=== PATIENT | female | born 1980 | race African-American/Black ===

== ENCOUNTER 2016-10-09 11:08 | Emergency (ER) | payer SELFPAY ==
[~2016-10-09] VITALS: Ht 180.3 cm; Wt 96.6 kg
[~2016-10-09 11:08] MED LIST: CALC300T4 PO; DICY20TA30 PO; NAPR500T3 PO; ONDA4TAB7 PO; PROM25TA10 PO
[2016-10-09 11:30] VITALS: BP 138/81
--- NOTE | 2016-10-09 12:02 | RAD ---
Knee x-rays Indication: anterior and lateral right knee pain. Technique: 3 views of right knee Comparison: none Findings: No acute fracture or dislocation. No evidence of arthritic process. No knee joint effusion. Impression: No acute fracture or dislocation.
--- NOTE | 2016-10-09 12:12 | PHYS DOC ---
Past Medical History Past Medical History: Other Additional Past Medical Histor: ectopic , dislocated R knee 6 yrs ago Past Surgical History: Tubal ligation, Other Additional Past Surgical Histo: D&C for ectopic 2004 Alcohol Use: Occasionally Drug Use: None Adult General Chief Complaint Chief Complaint: KNEE INJURY [facility] HPI Patient is a 36 year old female presents to the emergency department with a history of right knee pain. Patient states she walking along when the knee gave out. Her pain in above the knee and runs down the lateral side of the knee. She denies numbness or tingling to the lower extremities. She had taken ibuprofen for the pain with minimal relief. She is able to ambulate with steady gait. Review of Systems Review of Systems Constitutional: Denies fever or chills [] Eyes: Denies change in visual acuity, redness, or eye pain [] HENT: Denies nasal congestion or sore throat [] Respiratory: Denies cough or shortness of breath [] Cardiovascular: No additional information not addressed in HPI [] GI: Denies abdominal pain, nausea, vomiting, bloody stools or diarrhea [] : Denies dysuria or hematuria [] Musculoskeletal: Denies back pain. Right knee pain Integument: Denies rash or skin lesions [] Neurologic: Denies headache, focal weakness or sensory changes [] Endocrine: Denies polyuria or polydipsia [] Allergies Allergies Allergies Coded Allergies Type Severity Reaction Last Updated Verified No Known Drug Allergies 03/29/13 No Physical Exam Physical Exam Constitutional: Well developed, well nourished, no acute distress, non-toxic appearance. [] HENT: Normocephalic, atraumatic, bilateral external ears normal, oropharynx moist, no oral exudates, nose normal. [] Eyes: PERRLA, EOMI, conjunctiva normal, no discharge. [] Neck: Normal range of motion, no tenderness, supple, no stridor. [] Cardiovascular:Heart rate regular rhythm Lungs & Thorax: no respiratory distress noted Skin: Warm, dry, no erythema, no rash. [] Back: No tenderness Extremities: right lateral knee tenderness, tenderness noted above the knee, no cyanosis, no clubbing, ROM intact, no edema. No bruising, discoloration or swelling noted. Peripheral pulses 2+ cap refill brisk < 2 seconds. Negative lachmans, negative vargus, negative valgus Neurologic: Alert and oriented X 3, normal motor function, normal sensory function, no focal deficits noted. [] Psychologic: Affect normal, judgement normal, mood normal. [] Current Patient Data Vital Signs Vital Signs Date Time Temp Pulse Resp B/P (MAP) Pulse Ox O2 Delivery O2 Flow Rate FiO2 10/09/16 11:30 98.3 88 18 99 Room Air 98.3 EKG EKG [] Radiology/Procedures Radiology/Procedures [facility] [address] [place] [address] IMAGING REPORT Signed PATIENT: DAI ABERNATHY ACCOUNT: [id number] : 1980 LOCATION: ER AGE: 36 SEX: F EXAM STATUS: REG ER ORD. PHYSICIAN: KATELYNN ISAAC APRN REASON: pain and discomfort PROCEDURE: KNEE RIGHT 4V Knee x-rays Indication: anterior and lateral right knee pain. Technique: 3 views of right knee Comparison: none Findings: No acute fracture or dislocation. No evidence of arthritic process. No knee joint effusion. Impression: No acute fracture or dislocation. DICTATED and SIGNED BY: LOGAN SMITH DO DATE: 10/09/16 1158 CC: KATELYNN ISAAC APRN; NO PCP; NON,STAFF ~ [] Course & Med Decision Making Course & Med Decision Making Pertinent Labs and Imaging studies reviewed. (See chart for details) X-rays were negative for any abnormalities. Patient will be placed in a Shad wrap with recommendations for ice packs on 20 minutes off 20 minutes several times a day. Elevation as much as possible. Patient will be discharged home with recommendations to follow-up with orthopedic. Ibuprofen 800 mg every 8 hours with food stop taking few develop an upset stomach. Patient agrees with discharge instructions treatment regimens and follow-up recommendations. Signs and symptoms to return back to emergency department as been provided. All questions and concerns been answered at patient's bedside. [] Dragon Disclaimer Dragon Disclaimer This electronic medical record was generated, in whole or in part, using a voice recognition dictation system. Departure Departure Impression: Primary Impression: Right knee pain Disposition: HOME, SELF-CARE Condition: STABLE Referrals: NO PCP (PCP) DAR MUSTAFA MD Patient Instructions: Knee Pain, [id number] Additional Instructions: Activity as tolerated. Ice packs on 20 minutes off 20 minutes several times a day. Elevation as much as possible. Wear the Shad wrap for the next 5-7 days. Ibuprofen 800 mg every 8 hours with food stop taking few develop an upset stomach. Follow-up with orthopedic in the next week. Return back to emergency prior signs symptoms of become worse. Problem Qualifiers Primary Impression: Right knee pain Chronicity: unspecified Qualified Codes: M25.561 - Pain in right knee KATELYNN ISAAC APRN Oct 09, 2016 12:12
== END 2016-10-09 12:28 | disposition home or self-care (01) ==
LOC: ER 11:08
DX: M25.561 Pain in right knee (principal)
CPT/HCPCS: 73564; 99284

== ENCOUNTER 2016-10-17 15:40 | Emergency (ER) | payer SELFPAY ==
[~2016-10-17] VITALS: Ht 180.3 cm; Wt 96.2 kg
--- NOTE | 2016-10-17 16:41 | PHYS DOC ---
Past Medical History Past Medical History: Other Additional Past Medical Histor: ectopic , dislocated R knee 6 yrs ago Past Surgical History: Tubal ligation, Other Additional Past Surgical Histo: D&C for ectopic 2004 Alcohol Use: Occasionally Drug Use: None Adult General Chief Complaint Chief Complaint: ABDOMINAL PAIN HPI HPI Patient is a 36 year old AA female presents with suprapubic pain, described as sharp cramping and continuous starting several hours prior to ED arrival. Pain is rated [id number] is worse with palpation and is not relieved with rest or movement. Ibuprofen taken with limited improvement. Patient denies urinary frequency urgency hematuria, vaginal discharge. No flank pain. No nausea vomiting or sweats. No fevers or chills. No history of kidney stones. Previous laparoscopic surgery for ectopic . Last menstrual period was one week ago. No other acute symptoms or complaints Review of Systems Review of Systems Review symptoms as per history of present illness. All other review symptoms are negative. Current Medications Current Medications Current Medications Medications (Trade) Dose Ordered Sig/Jozef Start Time Stop Time Status Last Admin Dose Admin Info (Do NOT chart on this entry -- for MONITORING) 1 each PRN DAILY PRN 10/17/16 20:00 10/17/16 23:03 DC Iohexol (Omnipaque 300 Mg/ml) 75 ml 1X ONCE 10/17/16 19:45 10/17/16 19:46 DC 10/17/16 20:43 75 ML Ketorolac Tromethamine (Toradol) 30 mg 1X ONCE 10/17/16 17:15 10/17/16 17:16 DC 10/17/16 17:30 30 MG Morphine Sulfate 4 mg 1X ONCE 10/17/16 20:45 10/17/16 20:46 DC 10/17/16 21:07 4 MG Ondansetron HCl (Zofran) 4 mg 1X ONCE 10/17/16 19:30 10/17/16 19:31 DC 10/17/16 19:46 4 MG Allergies Allergies Allergies Coded Allergies Type Severity Reaction Last Updated Verified No Known Drug Allergies 03/29/13 No Physical Exam Physical Exam Constitutional: Well developed, well nourished, no acute distress. [] HENT: Normocephalic, atraumatic, bilateral external ears normal, oropharynx moist, nose normal. [] Eyes: PERRLA, EOMI, conjunctiva normal, no discharge. [] Neck: Normal range of motion, no tenderness, supple, no stridor. [] Cardiovascular:Heart rate regular rhythm, no murmur [] Lungs & Thorax: Bilateral breath sounds clear to auscultation [] Abdomen: Bowel sounds normal, soft suprapubic pain, tenderness, right lower quadrant negative McBurney's point. [] Skin: Warm, dry, no erythema, no rash. [] Back: No tenderness, no CVA tenderness. [] Extremities: No tenderness, no cyanosis, no clubbing, ROM intact, no edema. [] Neurologic: Alert and oriented X 3, normal motor function, normal sensory function, no focal deficits noted. [] Psychologic: Affect normal, judgement normal, mood normal. [] Current Patient Data Vital Signs Vital Signs Date Time Temp Pulse Resp B/P (MAP) Pulse Ox O2 Delivery O2 Flow Rate FiO2 10/17/16 21:11 61 16 111/71 (84) 98 Room Air 10/17/16 19:50 98.5 98.5 Lab Values Laboratory Tests Test 10/17/16 15:30 10/17/16 16:06 10/17/16 17:20 POC Urine HCG, Qualitative Hcg negative (Negative) Urine Collection Type Unknown Urine Color Yellow Urine Clarity Clear Urine pH 7.0 Urine Specific [place] 1.010 Urine Protein Negative mg/dL (NEG-TRACE) Urine Glucose (UA) Negative mg/dL (NEG) Urine Ketones (Stick) Negative mg/dL (NEG) Urine Blood Negative (NEG) Urine Nitrite Negative (NEG) Urine Bilirubin Negative (NEG) Urine Urobilinogen Dipstick 0.2 mg/dL (0.2 mg/dL) Urine Leukocyte Esterase Trace (NEG) Urine RBC 0 /HPF (0-2) Urine WBC 1-4 /HPF (0-4) Urine Squamous Epithelial Cells Mod /LPF Urine Bacteria Few /HPF (0-FEW) White Blood Count 12.8 x10^3/uL (4.0-11.0) H Red Blood Count 4.78 x10^6/uL (3.50-5.40) Hemoglobin 13.3 g/dL (12.0-15.5) Hematocrit 40.6 % (36.0-47.0) Mean Corpuscular Volume 85 fL (79-100) Mean Corpuscular Hemoglobin 28 pg (25-35) Mean Corpuscular Hemoglobin Concent 33 g/dL (31-37) Red Cell Distribution Width 12.6 % (11.5-14.5) Platelet Count 220 x10^3/uL (140-400) Neutrophils (%) (Auto) 71 % (31-73) Lymphocytes (%) (Auto) 21 % (24-48) L Monocytes (%) (Auto) 6 % (0-9) Eosinophils (%) (Auto) 1 % (0-3) Basophils (%) (Auto) 1 % (0-3) Neutrophils # (Auto) 9.2 x10^3uL (1.8-7.7) H Lymphocytes # (Auto) 2.7 x10^3/uL (1.0-4.8) Monocytes # (Auto) 0.8 x10^3/uL (0.0-1.1) Eosinophils # (Auto) 0.1 x10^3/uL (0.0-0.7) Basophils # (Auto) 0.1 x10^3/uL (0.0-0.2) Sodium Level 140 mmol/L (136-145) Potassium Level 3.8 mmol/L (3.5-5.1) Chloride Level 103 mmol/L (98-107) Carbon Dioxide Level 27 mmol/L (21-32) Anion Gap 10 (6-14) Blood Urea Nitrogen 9 mg/dL (7-20) Creatinine 0.9 mg/dL (0.6-1.0) Estimated GFR (Cockcroft-Gault) 86.7 BUN/Creatinine Ratio 10 (6-20) Glucose Level 95 mg/dL (70-99) Calcium Level 8.6 mg/dL (8.5-10.1) Total Bilirubin 0.3 mg/dL (0.2-1.0) Aspartate Amino Transferase (AST) 20 U/L (15-37) Alanine Aminotransferase (ALT) 37 U/L (14-59) Alkaline Phosphatase 54 U/L (46-116) C-Reactive Protein, Quantitative 2.3 mg/L (0-3.3) Total Protein 7.2 g/dL (6.4-8.2) Albumin 3.6 g/dL (3.4-5.0) Albumin/Globulin Ratio 1.0 (1.0-1.7) Laboratory Tests 10/17/16 17:20 Laboratory Tests 10/17/16 17:20 EKG EKG .] Radiology/Procedures Radiology/Procedures [CT abdomen and pelvis: Left ovarian mass, right adnexal mass concerning for hydrosalpinx per radiology report Pelvic ultrasound: Blood flow noted to both ovaries, complex left ovarian mass per radiology report.] Course & Med Decision Making Course & Med Decision Making Pertinent Labs and Imaging studies reviewed. (See chart for details) [Pain significantly improved with treatment. I discussed with patient abnormal findings of ultrasound and the importance of following up with INTELLIGENCE MANAGER. Patient referred to on-call INTELLIGENCE MANAGER. Patient verbalizes understanding agreement discharge plan. Dragon Disclaimer Dragon Disclaimer This electronic medical record was generated, in whole or in part, using a voice recognition dictation system. Departure Departure Impression: Primary Impression: Pelvic pain Disposition: 01 HOME, SELF-CARE Condition: IMPROVED Referrals: NO PCP (PCP) OCTAVIA BALDERAS DO Oct 17, 2016 16:41
[2016-10-17 16:59] LABS: BILIRUBIN,URINE NEGATIVE (NEG); GLUCOSE,URINE NEGATIVE (NEG); NITRITE,URINE NEGATIVE (NEG); PROTEIN,URINE NEGATIVE (NEG-TRACE); UROBILINOGEN,URINE 0.2 mg/dL (0.2 mg/dL)
[2016-10-17] MEDS ORDERED: KETOROLAC TROMETHAMINE 30 MG/ML INJ. IV ONE (17:15)
[2016-10-17 17:43] LABS: BACTERIA,URINE FEW /HPF (0-FEW); RBC,URINE 0 /HPF (0-2)
[2016-10-17 17:44] LABS: SQUAMOUS EPITHELIAL CELL,UR MOD /LPF
[2016-10-17 18:29] LABS: BASO # 0.1 x10^3/uL (0.0-0.2); BASO % 1 % (0-3); EOS % 1 % (0-3); HEMATOCRIT 40.6 % (36.0-47.0); HEMOGLOBIN 13.3 g/dL (12.0-15.5); LYMPH # 2.7 x10^3/uL (1.0-4.8); LYMPH % 21 % (24-48); MEAN CORPUSCULAR HEMOGLOBIN 28 pg (25-35); MEAN CORPUSCULAR HGB CONC 33 g/dL (31-37); MEAN CORPUSCULAR VOLUME 85 fL (79-100); MONO % 6 % (0-9); NEUT % 71 % (31-73); PLATELET COUNT 220 x10^3/uL (140-400); RED BLOOD COUNT 4.78 x10^6/uL (3.50-5.40); RED CELL DISTRIBUTION WIDTH 12.6 % (11.5-14.5); WHITE BLOOD COUNT 12.8 x10^3/uL (4.0-11.0)
[2016-10-17 18:43] LABS: CALCIUM 8.6 mg/dL (8.5-10.1); CREATININE 0.9 mg/dL (0.6-1.0); GFR 86.7; POTASSIUM 3.8 mmol/L (3.5-5.1)
[2016-10-17 18:49] LABS: ALBUMIN 3.6 g/dL (3.4-5.0); C-REACTIVE PROTEIN 2.3 mg/L (0-3.3); TOTAL BILIRUBIN 0.3 mg/dL (0.2-1.0); TOTAL PROTEIN 7.2 g/dL (6.4-8.2)
[2016-10-17] MEDS ORDERED: ONDANSETRON PF 4 MG/2 ML VIAL. IV ONE (19:30)
[2016-10-17] MEDS ORDERED: MORPHINE SULFATE 10 MG/ML VIAL. IV ONE (19:30)
[2016-10-17] MEDS ORDERED: IOHEXOL 300 MG/ML 75 ML VIAL IV ONE (19:45)
[2016-10-17] MEDS ORDERED: CONTRAST GIVEN MC PRN (20:00)
[2016-10-17] MEDS ORDERED: MORPHINE SULFATE 4 MG/ML DISP.SYRIN. IV ONE (20:45)
--- NOTE | 2016-10-17 21:07 | RAD ---
EXAM: Abdomen and pelvis CT with intravenous contrast. HISTORY: Pain with urination. TECHNIQUE: Computed tomographic images of the abdomen and pelvis were obtained following the administration of 75 cc Omnipaque 300 intravenous contrast. Multiplanar reformatting was performed. *One or more of the following individualized dose reduction techniques were utilized for this examination: 1. Automated exposure control. 2. Adjustment of the mA and/or kV according to patient size. 3. Use of iterative reconstruction technique. COMPARISON: 06/11/2010. FINDINGS: Evaluation of the lower thorax demonstrates posterior dependent atelectasis. No suspicious hepatic lesion is seen. The gallbladder, pancreas, spleen, adrenal glands and kidneys are unremarkable. The bladder is unremarkable. The appendix is normal in appearance. No abnormally thickened or dilated loop of bowel is seen. The uterus is slightly retroflexed. There is an enlarged heterogeneous left ovary. There is a 7.0 cm somewhat tubular fluid collection within the posterior cul-de-sac. No pathologically enlarged lymph node is seen. There is no suspicious osseous lesion. IMPRESSION: 1. Heterogeneously enlarged left ovary. This may be due to multiple prominent ovarian follicles or solid ovarian lesion. The possibility of enlargement due to torsion is not excluded. This can be further characterized with a pelvic sonogram. 2. 4.7 cm somewhat tubular fluid collection within the posterior cul-de-sac. This may be due to hydrosalpinx or a complex paraovarian cyst. This appears separate from adjacent bowel loops. This can be further assessed with a pelvic sonogram. Electronically signed by: Sis Celestin MD (10/17/2016 9:04 PM) [facility]
[2016-10-17 21:11] VITALS: BP 111/71
--- NOTE | 2016-10-17 22:25 | RAD ---
EXAM: Pelvic sonogram. HISTORY: Left lower quadrant pain. TECHNIQUE: Transabdominal and transvaginal sonographic imaging of the pelvis was performed. COMPARISON: CT obtained on the same date. FINDINGS: The uterus measures 9.1 x 5.4 x 5.7 cm. The endometrial stripe measures 1.4 cm in thickness. The right ovary measures 2.8 x 2.0 x 1.7 cm and demonstrates normal blood flow. There are several small right ovarian follicles. The left ovary is enlarged due to a 3.5 x 3.3 x 2.5 cm nonvascular lesion, possibly an endometrioma. There are multiple surrounding left ovarian follicles and there is normal blood flow within the left ovary with a total left ovarian volume of 7.2 x 4.0 x 3.5 cm. There is a complex cystic or fluid-filled tubular structure posterior to the uterine fundus measuring 7.4 x 3.0 x 2.1 cm. There is no pelvic free fluid. IMPRESSION: 1. 7.4 cm complex cystic or fluid-filled to be a structure posterior to the uterine fundus. This is demonstrated on a sonogram dated 06/11/2010. The minimal interval change management specialist a greater than 6 year period favors a benign etiology such as hydrosalpinx or a paraovarian cyst. 2. 3.5 cm nonvascular lesion within the left ovary, the appearance of which favors an endometrioma. The possibility of an alternative lesion such as a dermoid is not completely excluded. This is not seen on the prior study. 3. Thickened endometrium. Electronically signed by: Sis Celestin MD (10/17/2016 10:22 PM) [facility]
== END 2016-10-17 22:55 | disposition home or self-care (01) ==
LOC: ER 15:40
DX: R10.2 Pelvic and perineal pain (principal); R10.31 Right lower quadrant pain
CPT/HCPCS: 36415; 74177; 76830; 76856; 80053; 81001; 81025; 85025; 86140; 87086; 96374; 96375; 96376; 99285; J1885; J2270; J2405; Q9967

== ENCOUNTER 2017-03-05 10:22 | Emergency (ER) | payer OTHER | END 2017-03-05 11:17 | disposition home or self-care (01) | LOC: ER 10:22 | DX: K04.7 Periapical abscess without sinus (principal) | CPT/HCPCS: 99283 ==

== ENCOUNTER 2017-03-05 19:11 | Emergency (ER) | payer OTHER ==
[2017-03-05] MEDS: LIDOCAINE 2% VISCOUS 15 ML SOLUTION. SWSW (21:13)
[2017-03-05] MEDS: HYDROcodone/APAP 5/325MG 1 TAB TABLET PO (21:14)
== END 2017-03-05 21:30 | disposition home or self-care (01) ==
LOC: ER 19:11
DX: K04.7 Periapical abscess without sinus (principal)
CPT/HCPCS: 99283

== ENCOUNTER 2017-04-05 18:20 | Emergency (ER) | payer OTHER | END 2017-04-05 19:52 | disposition home or self-care (01) | LOC: ER 19:52 | DX: K08.89 Other specified disorders of teeth and supporting structures (principal) | CPT/HCPCS: 99283 ==

== ENCOUNTER 2017-04-06 23:23 | Emergency (ER) | payer OTHER ==
[2017-04-07] MEDS: KETOROLAC 60 MG/2 ML INJ. IM ×2 (00:13)
[2017-04-07] MEDS ORDERED: CONTRAST GIVEN MC ×2 (00:45)
[2017-04-07] MEDS: IOHEXOL 300 MG/ML 100ML VIAL. IV ×2 (01:03)
[2017-04-07] MEDS ORDERED: DOXYCYCLINE HYCLATE 100 MG TABLET PO ×2 (03:00)
== END 2017-04-07 03:05 | disposition home or self-care (01) ==
LOC: ER 23:23
DX: L03.211 Cellulitis of face (principal); J32.9 Chronic sinusitis, unspecified; K08.89 Other specified disorders of teeth and supporting structures; K02.9 Dental caries, unspecified; R22.0 Localized swelling, mass and lump, head
CPT/HCPCS: 70487; 96372; 99284-25; J1885; Q9967

== ENCOUNTER 2021-05-08 16:35 | Emergency (ER) | payer SELFPAY ==
[~2021-05-08] VITALS: Ht 180.3 cm; Wt 100.4 kg
[~2021-05-08 16:35] MED LIST changes: +CLIN-94 PO; +DOXY-181 PO; +HYDR-3164 PO; +LACT1CAP19 PO; +NAPR-514 PO; +NAPR-683 PO; -NAPR500T3 PO; +OXYC1TAB15 PO; +PENI500T PO
[2021-05-08 17:18] VITALS: BP 152/89
[2021-05-09] MEDS ORDERED: HYDR-2761 PO (18:11)
== END 2021-05-08 18:45 | disposition left against medical advice (07) ==
LOC: ER 16:35
DX: M25.551 Pain in right hip (principal); M54.9 Dorsalgia, unspecified; Z53.21 Procedure and treatment not carried out due to patient leaving prior to being seen by health care provider; G89.11 Acute pain due to trauma; W18.39XA Other fall on same level, initial encounter; Y93.89 Activity, other specified; Y92.89 Other specified places as the place of occurrence of the external cause; Y99.8 Other external cause status

== ENCOUNTER 2021-05-09 15:15 | Emergency (ER) | payer SELFPAY ==
[~2021-05-09] VITALS: Ht 175.3 cm; Wt 98.8 kg
[2021-05-09 15:30] VITALS: BP 170/97
--- NOTE | 2021-05-09 15:49 | PHYS DOC ---
Past Medical History Past Medical History: No Pertinent History Additional Past Medical Histor: ectopic , dislocated R knee 6 yrs ago Past Surgical History: Other Additional Past Surgical Histo: D&C for ectopic 2004,laproscopy. Smoking Status: Current Every Day Smoker Alcohol Use: Occasionally Drug Use: None General Adult EDM: Chief Complaint: MECHANICAL FALL HPI: HPI: Patient is a 41-year-old female who presents to the emergency department following a fall that occurred on Thursday. Patient reports that she was taking her trash out when it was raining and she slipped on the wet wooden stairs and slid down on her butt down 5 steps. She denies hitting her head or loss of consciousness. She is reporting pain to her coccyx and right buttock. She rate s her pain 6 out of 10 at rest and 9 out of 10 with movement. No treatment prior to arrival. Patient denies any loss of bowel or bladder, saddle anesthesias. Review of Systems: Review of Systems: HENT: See HPI : See HPI Musculoskeletal: See HPI Integument: Reports ecchymosis to the right buttock Neurologic: See HPI Heart Score: C/O Chest Pain: N/A Risk Factors: Risk Factors: DM, Current or recent (<one month) smoker, HTN, HLP, family history of CAD, obesity. Risk Scores: Score 0 - 3: 2.5% MACE over next 6 weeks - Discharge Home Score 4 - 6: 20.3% MACE over next 6 weeks - Admit for Clinical Observation Score 7 - 10: 72.7% MACE over next 6 weeks - Early Invasive Strategies Allergies: Allergies: Allergies Coded Allergies Type Severity Reaction Last Updated Verified No Known Drug Allergies 03/29/13 No Physical Exam: PE: Constitutional: Well developed, well nourished, no acute distress, non-toxic appearance. [] HENT: Normocephalic, atraumatic, bilateral external ears normal, oropharynx moist, no oral exudates, nose normal. [] Eyes: PERRL, EOMI, conjunctiva normal, no discharge. [] Neck: Normal range of motion, no tenderness, supple, no stridor. [] Cardiovascular: Normal peripheral perfusion Lungs & Thorax: Normal work of breathing, no tachypnea Abdomen: Soft and flat Skin: Warm, dry, no erythema, no rash, ecchymosis noted across right buttock Back: Normal range of motion, mild ecchymosis noted to coccyx and tenderness with palpation, no obvious deformities or crepitus Extremities: No tenderness, no cyanosis, no clubbing, ROM intact, no edema. [] Neurologic: Alert and oriented X 3, normal motor function, normal sensory function, no focal deficits noted, patient able to bear weight and ambulate. [] Psychologic: Affect normal, judgement normal, mood normal. [] Current Patient Data: Vital Signs: Vital Signs Date Time Temp Pulse Resp B/P (MAP) Pulse Ox O2 Delivery O2 Flow Rate FiO2 05/09/21 15:30 98.6 109 18 170/97 (121) 95 Room Air 98.6 EKG: EKG: [] Radiology/Procedures: Radiology/Procedures: []PROCEDURE: SACRUM & COCCYX 3V One view pelvis: History: Pain status post fall AP view the pelvis was obtained. The visualized osseous structures appear intact. There is obscuration of the bony detail of the sacrum due to overlying bowel gas. Impression: No acute findings. End of impression Sacrum coccyx 3 views History: Pain status post fall AP views of the sacrum and coccyx was obtained as well as a lateral view. The visualized osseous structures appear normal. This is a difficult area to evaluate. There is some obscuration of bony detail of the sacrum due to overlying bowel gas. Impression: No acute bony abnormality noted. Electronically signed by: Dar Garcia III, MD (05/09/2021 5:47 PM) [facility] DICTATED and SIGNED BY: DAR GARCIA III, MD DATE: 05/09/211741 Course & Med Decision Making: Course & Med Decision Making Pertinent Labs and Imaging studies reviewed. (See chart for details) [] Patient presents to the emergency department following a fall. Patient is reporting coccyx and right buttock pain. No cauda equina signs. Imaging was performed of these areas that showed no acute findings. Patient discharged home with pain medication, advised to apply ice. I discussed with patient all findings and diagnostic testing as well as the need to follow-up with PCP for further evaluation and treatment or return to the ER if any new or worsening symptoms. Strict return precautions were also discussed at length. Patient voiced understanding and agreement with the plan. Patient is hemodynamically stable at the time of disposition. Dragon Disclaimer: Dragon Disclaimer: This electronic medical record was generated, in whole or in part, using a voice recognition dictation system. Departure Departure Impression: Primary Impression: Fall Qualified Codes: W19.XXXA - Unspecified fall, initial encounter Disposition: HOME / SELF CARE / HOMELESS Condition: GOOD Referrals: NO PCP (PCP) Patient Instructions: Contusion Additional Instructions: You are seen in the emergency department following a fall. Imaging was performed that showed no acute findings. Please take ibuprofen for mild pain. You are being discharged home with pain medication for severe pain. This medication is Tylenol and hydrocodone combination tablet. Please caution take this medication may cause drowsiness. Do not take need to be alert, driving a vehicle with alcohol. You can also apply ice to any sore areas. Follow-up with your primary care provider within a week. Return to the emergency department if you develop worsening of your pain, loss of bowel or bladder, loss of sensation in your groin or down your legs, inability to bear weight or walk. Scripts Hydrocodone Bit/Acetaminophen (HYDROCODONE-APAP 5-325 ) 1 Tab Tablet 1 TAB PO PRN Q6HRS PRN for PAIN for 2 Days, #8 TAB 0 Refills Prov: AIMEE ARAGON APRN 05/09/21 AIMEE ARAGON APRN May 09, 2021 15:49
--- NOTE | 2021-05-09 17:50 | RAD ---
One view pelvis: History: Pain status post fall AP view the pelvis was obtained. The visualized osseous structures appear intact. There is obscuration of the bony detail of the sacru m due to overlying bowel gas. Impression: No acute findings. End of impression Sacrum coccyx 3 views History: Pain status post fall AP views of the sacrum and coccyx was obtained as well as a lateral view. The visualized osseous structures appear normal. This is a difficult area to evaluate. There is some obscuration of bony detail of the sacrum due to overlying bowel gas. Impression: No acute bony abnormality noted. Electronically signed by: El Garcia III, MD (05/09/2021 5:47 PM) [facility]
[2021-05-09] MEDS ORDERED: HYDR-2761 PO (18:11)
== END 2021-05-09 18:34 | disposition home or self-care (01) ==
LOC: ER 15:15
DX: M54.50 Low back pain, unspecified (principal); M53.3 Sacrococcygeal disorders, not elsewhere classified; F17.200 Nicotine dependence, unspecified, uncomplicated; G89.11 Acute pain due to trauma; W18.39XA Other fall on same level, initial encounter; Y93.89 Activity, other specified; Y92.89 Other specified places as the place of occurrence of the external cause; Y99.8 Other external cause status
CPT/HCPCS: 72170; 72220; 99284